=== PATIENT | male | born 1965 | race Caucasian/White ===

== ENCOUNTER 2023-07-03 04:56 | Emergency (ER) | payer OTHER ==
[~2023-07-03] VITALS: Ht 165.1 cm; Wt 84.8 kg
[~2023-07-03 04:56] MED LIST: AMLO5TAB88 PO; LACT10SO7 PO
[2023-07-03 05:36] VITALS: O2SAT 95
[2023-07-03] MEDS ORDERED: ACETAMINOPHEN 325MG TABLET PO ONE (07:45)
[2023-07-03] MEDS ORDERED: TOPUD PO (13:28)
[2023-07-03] MEDS ORDERED: ACETAMINOPHEN 325MG TABLET PO NR (14:00)
[2023-07-03 14:28] VITALS: BP 140/90; PULSE 87; RESP 20; TEMP 97.9
== END 2023-07-03 14:29 | disposition home or self-care (01) ==
LOC: ER 05:07
DX: M54.6 Pain in thoracic spine (principal); E11.9 Type 2 diabetes mellitus without complications; I10 Essential (primary) hypertension
CPT/HCPCS: 73030; 99283

== ENCOUNTER 2023-07-09 05:49 | Emergency (ER) | payer OTHER ==
[~2023-07-09] VITALS: Ht 170.2 cm; Wt 85.0 kg
[~2023-07-09 05:49] MED LIST changes: +TOPUD PO
[2023-07-09] MEDS ORDERED: LORAZEPAM 2MG/ML CPJ IV STA (06:11)
[2023-07-09] MEDS ORDERED: SODIUM CHLORIDE 0.9% 1,000 ML IV ONE (06:15)
[2023-07-09 06:58] LABS: BASOPHILS % 0.7 % (0.0-2.0); HEMATOCRIT. 44.9 % (42.0-52.0); HEMOGLOBIN. 15.9 g/dL (14.0-18.0); LYMPHOCYTES % 39.1 % (20.0-50.0); MEAN CORPUSCULAR HEMOGLOBIN 33.9 pg (28.0-32.0); MEAN CORPUSCULAR HGB CONC 35.3 g/dL (31.0-37.0); MEAN CORPUSCULAR VOLUME 96.1 fL (80.0-94.0); MEAN PLATELET VOLUME 8.7 fl (7.4-10.4); MONOCYTES % 7.7 % (2.0-8.0); NEUTROPHILS % 46.5 % (40.0-76.0); PLATELET 120 x1000/uL (130-400); RED BLOOD CELL COUNT 4.67 mill/uL (4.7-6.1); RED CELL DISTRIBUTION WIDTH 14.8 % (11.6-14.6); WHITE BLOOD COUNT 5.5 x1000/uL (4.5-11.0)
[2023-07-09 07:07] LABS: CHLORIDE 110 mEq/L (98-107); INDEX HEMOLYSI 6 (1-3); INDEX ICTERIC 2 (1-4); INDEX LIPEMIC 1 (1-3); SODIUM 138 mEq/L (136-145)
[2023-07-09 07:08] LABS: INDEX HEMOLYSI 3 (1-3)
[2023-07-09 07:13] LABS: ALBUMIN 3.4 g/dL (3.4-5.0); ASPARTATE AMINOTRANSFERASE 114 IU/L (15-37); BILIRUBIN TOTAL 3.1 mg/dL (0.1-1.0); CALCIUM 8.6 mg/dL (8.5-10.1); CARBON DIOXIDE 25 mEq/L (21-32); CREATININE 0.6 mg/dL (0.6-1.3); ETHANOL BLOOD < 10 mg/dL (-10); GLUCOSE 100 mg/dL (70-105); PROTEIN TOTAL 8.4 g/dL (6.0-8.3); UREA NITROGEN BLOOD 6 mg/dL (7-21)
[2023-07-09 07:28] LABS: POTASSIUM 5.9 mEq/L (3.5-5.1)
[2023-07-09] MEDS ORDERED: LORAZEPAM 2MG/ML CPJ IM STA (08:01)
[2023-07-09 08:08] LABS: AMMONIA 164 uMol/L (<32)
[2023-07-09] MEDS ORDERED: HALOPERIDOL LACTATE 5MG/ML VIAL IM ONE (08:15)
[2023-07-09 08:16] LABS: ALANINE AMINOTRANSFERASE 42 IU/L (13-61)
[2023-07-09 11:44] VITALS: BP 124/78; PULSE 84; RESP 18; TEMP 98.5
[2023-07-09 11:49] LABS: CLARITY URINE CLEAR (CLEAR); COLOR URINE YELLOW (YELLOW); GLUCOSE URINE NEGATIVE (NEGATIVE); KETONES URINE NEGATIVE (NEGATIVE); LEUKOCYTE ESTERASE URINE NEGATIVE (NEGATIVE); NITRITE URINE NEGATIVE (NEGATIVE); OCCULT BLOOD URINE 3+ (NEGATIVE); PH URINE 7.5 (4.5-8.0); PROTEIN URINE NEGATIVE (NEGATIVE); SPECIFIC GRAVITY URINE 1.009 (1.005-1.030)
[2023-07-09 12:24] LABS: *AMPHETAMINES SCREEN URINE NEGATIVE (NEGATIVE); *BARBITURATES SCREEN URINE NEGATIVE (NEGATIVE); *BENZODIAZEPINES SCREEN URINE NEGATIVE (NEGATIVE); *COCAINE SCREEN URINE NEGATIVE (NEGATIVE); CANNABINOID URINE SCREEN NEGATIVE (NEGATIVE); ECSTASY MDMA SCREEN URINE NEGATIVE (NEGATIVE); METHADONE URINE SCREEN NEGATIVE (NEGATIVE); OPIATES URINE SCREEN NEGATIVE (NEGATIVE); PHENCYCLIDINE URINE SCREEN NEGATIVE (NEGATIVE)
[2023-07-09 13:24] LABS: BACTERIA URINE TRACE; RBC URINE 50-100 /hpf (0-2); SQUAMOUS EPITHELIAL CELL URINE NONE SEEN /lpf (RARE/1+)
[2023-07-09 13:25] LABS: WBC URINE 0-2 /hpf (0-2)
== END 2023-07-09 11:57 | disposition short-term general hospital (02) ==
LOC: ER 06:02
DX: K72.90 Hepatic failure, unspecified without coma (principal); K76.82 Hepatic encephalopathy; I49.9 Cardiac arrhythmia, unspecified
CPT/HCPCS: 80053; 80305; 81003; 80320; 82140; 85025; 36415; 70450; 93005; 96361; 96372; 96374; 99285; J1630; J2060; J7030; Z7610 ×5; G0480

== ENCOUNTER 2024-08-21 06:01 | Emergency (ER) | payer OTHER ==
[~2024-08-21] VITALS: Ht 167.6 cm; Wt 75.0 kg
[2024-08-21 06:14] VITALS: O2SAT 96
[2024-08-21 06:54] LABS: BASOPHILS % 1.1 % (0.0-2.0); EOSINOPHILS % 3.9 % (0.0-5.0); HEMOGLOBIN. 15.4 g/dL (14.0-18.0); LYMPHOCYTES % 26.6 % (20.0-50.0); MEAN CORPUSCULAR HEMOGLOBIN 35.1 pg (28.0-32.0); MEAN CORPUSCULAR HGB CONC 35.8 g/dL (31.0-37.0); MONOCYTES % 11.4 % (2.0-8.0); RED BLOOD CELL COUNT 4.39 mill/uL (4.7-6.1); RED CELL DISTRIBUTION WIDTH 14.3 % (11.6-14.6)
[2024-08-21 07:07] LABS: CHLORIDE 110 mEq/L (98-107); POTASSIUM 3.9 mEq/L (3.5-5.1); SODIUM 139 mEq/L (136-145)
[2024-08-21 07:08] LABS: CARBON DIOXIDE 22 mEq/L (21-32)
[2024-08-21 07:09] LABS: CALCIUM 9.4 mg/dL (8.7-10.4)
[2024-08-21 07:11] LABS: DIFFERENTIAL COMMENT 1
[2024-08-21 07:13] LABS: CREATININE 0.8 mg/dL (0.6-1.3); GLUCOSE 55 mg/dL (70-105)
[2024-08-21 07:14] LABS: TROPONIN I HIGH SENSITIVITY 4 ng/L (3.0-53); UREA NITROGEN BLOOD 7 mg/dL (9-23)
[2024-08-21 07:15] LABS: ALANINE AMINOTRANSFERASE 40 IU/L (10-49); ALBUMIN 3.9 g/dL (3.2-4.8); ASPARTATE AMINOTRANSFERASE 84 IU/L (<34); CREATINE KINASE 131 IU/L (46-171)
[2024-08-21 07:16] LABS: BILIRUBIN DIRECT 0.7 mg/dL (<=3.0); BILIRUBIN TOTAL 2.2 mg/dL (0.1-1.0); PROTEIN TOTAL 7.5 g/dL (6.0-8.3)
[2024-08-21 07:27] LABS: ETHANOL BLOOD < 10 mg/dL (<10)
[2024-08-21 07:31] LABS: AMMONIA 203 uMol/L (<32)
[2024-08-21 07:57] LABS: MEAN PLATELET VOLUME 8.5 fl (7.4-10.4); PLATELET 120 x1000/uL (130-400)
[2024-08-21] MEDS: LACTULOSE 20G/30ML UDC PO ONE (09:24)
[2024-08-21 09:53] VITALS: BP 111/76; PULSE 64; RESP 12; TEMP 36.50292; O2SAT 96
[2024-08-21 10:07] LABS: CLARITY URINE CLEAR (CLEAR); COLOR URINE YELLOW (YELLOW); GLUCOSE URINE NEGATIVE (NEGATIVE); KETONES URINE NEGATIVE (NEGATIVE); LEUKOCYTE ESTERASE URINE NEGATIVE (NEGATIVE); NITRITE URINE NEGATIVE (NEGATIVE); OCCULT BLOOD URINE NEGATIVE (NEGATIVE); PH URINE 7.5 (4.5-8.0); PROTEIN URINE NEGATIVE (NEGATIVE); SPECIFIC GRAVITY URINE 1.004 (1.005-1.030); UROBILINOGEN URINE 0.2 E.U./dL (0.2-1.0)
[2024-08-21 10:29] LABS: *AMPHETAMINES SCREEN URINE NEGATIVE (NEGATIVE); *BENZODIAZEPINES SCREEN URINE NEGATIVE (NEGATIVE)
[2024-08-21 10:30] LABS: *BARBITURATES SCREEN URINE NEGATIVE (NEGATIVE); *COCAINE SCREEN URINE NEGATIVE (NEGATIVE); CANNABINOID URINE SCREEN NEGATIVE (NEGATIVE); ECSTASY MDMA SCREEN URINE NEGATIVE (NEGATIVE); METHADONE URINE SCREEN NEGATIVE (NEGATIVE); OPIATES URINE SCREEN NEGATIVE (NEGATIVE); PHENCYCLIDINE URINE SCREEN NEGATIVE (NEGATIVE)
== END 2024-08-21 11:02 | disposition short-term general hospital (02) ==
LOC: ER 06:09
DX: R41.82 Altered mental status, unspecified (principal); E11.9 Type 2 diabetes mellitus without complications; I10 Essential (primary) hypertension; Z79.899 Other long term (current) drug therapy
CPT/HCPCS: 80076; 80305; 80048; 81003; 80320; 82140; 82550; 82962; 83690; 85025; 84484; 36415; 71045; 70450; 99285; Z7610; G0480

== ENCOUNTER 2024-12-17 06:29 | Inpatient (IN) | payer OTHER ==
[~2024-12-17] VITALS: Ht 172.7 cm; Wt 83.9 kg
[2024-12-17 08:16] LABS: BASOPHILS % 0.5 % (0.0-2.0); EOSINOPHILS % 5.1 % (0.0-5.0); HEMATOCRIT. 44.1 % (42.0-52.0); HEMOGLOBIN. 15.2 g/dL (14.0-18.0); LYMPHOCYTES % 22.9 % (20.0-50.0); MEAN CORPUSCULAR HEMOGLOBIN 33.7 pg (28.0-32.0); MEAN CORPUSCULAR HGB CONC 34.5 g/dL (31.0-37.0); MEAN CORPUSCULAR VOLUME 97.7 fL (80.0-94.0); MEAN PLATELET VOLUME 8.2 fl (7.4-10.4); MONOCYTES % 10.9 % (2.0-8.0); NEUTROPHILS % 60.6 % (40.0-76.0); PLATELET 116 x1000/uL (130-400); RED BLOOD CELL COUNT 4.51 mill/uL (4.7-6.1); RED CELL DISTRIBUTION WIDTH 13.4 % (11.6-14.6); WHITE BLOOD COUNT 5.2 x1000/uL (4.5-11.0)
[2024-12-17 08:25] LABS: CHLORIDE 112 mEq/L (98-107); POTASSIUM 3.3 mEq/L (3.5-5.1); SODIUM 142 mEq/L (136-145)
[2024-12-17 08:26] LABS: CALCIUM 9.4 mg/dL (8.7-10.4); CARBON DIOXIDE 20 mEq/L (21-32)
[2024-12-17 08:31] LABS: CREATININE 0.7 mg/dL (0.6-1.3); GLUCOSE 116 mg/dL (70-105); UREA NITROGEN BLOOD 8 mg/dL (9-23)
[2024-12-17 08:32] LABS: ALANINE AMINOTRANSFERASE 26 IU/L (10-49); ASPARTATE AMINOTRANSFERASE 38 IU/L (<34)
[2024-12-17 08:33] LABS: ACETAMINOPHEN < 2 ug/mL (10-30); ALBUMIN 3.4 g/dL (3.2-4.8); BILIRUBIN DIRECT 0.8 mg/dL (<=3.0); BILIRUBIN TOTAL 2.4 mg/dL (0.1-1.0); PROTEIN TOTAL 7.4 g/dL (6.0-8.3)
[2024-12-17 09:11] LABS: AMMONIA 165 uMol/L (<32)
[2024-12-17 09:13] LABS: TROPONIN I HIGH SENSITIVITY < 4 ng/L (3.0-53)
[2024-12-17 09:14] LABS: ETHANOL BLOOD < 10 mg/dL (<10)
[2024-12-17] MEDS: LACTULOSE 20G/30ML UDC PO ONE (11:05)
[2024-12-17] MEDS ORDERED: ONDANSETRON HCL 4MG/2ML INJ IV PRN (11:30)
[2024-12-17] MEDS ORDERED: ACETAMINOPHEN 325MG TABLET PO PRN (11:30)
[2024-12-17] MEDS ORDERED: LACTULOSE 20G/30ML UDC PO SCH (14:00)
[2024-12-17 16:00] VITALS: BP_SYST 109; BP_SYST 140; BP_DIAS 60; BP_DIAS 89; PULSE 79; PULSE 80; RESP 22; TEMP 36.4; O2SAT 97; O2SAT 98
[2024-12-17] MEDS ORDERED: FUROSEMIDE 40MG/4ML VIAL IVP SCH (16:45)
[2024-12-17] MEDS ORDERED: SPIRONOLACTONE 50MG TABLET PO SCH (16:45)
[2024-12-17] MEDS: POTASSIUM CHLORIDE 20MEQ TABLET SR PO NR (17:26)
[2024-12-17] MEDS: PANTOPRAZOLE 40MG DR TABLET PO ONE (17:27)
[2024-12-17] MEDS: LORAZEPAM 2MG/ML INJ IV PRN (17:27)
[2024-12-17 17:48] VITALS: BP 109/60; PULSE 80; RESP 20; TEMP 36.4
[2024-12-17 18:05] LABS: TROPONIN I HIGH SENSITIVITY < 4 ng/L (3.0-53)
[2024-12-17 20:00] VITALS: BP 128/80; PULSE 80; RESP 20; TEMP 36.6; O2SAT 97
[2024-12-17] MEDS: LACTULOSE 20G/30ML UDC PO SCH (23:35)
[2024-12-18] VITALS (7 sets, daily range): BP systolic 102–128; BP diastolic 64–82; PULSE 63–74; RESP 18–22; TEMP 35.7–37.1; O2SAT 93–100
[2024-12-18 07:04] LABS: CHLORIDE 110 mEq/L (98-107); SODIUM 142 mEq/L (136-145)
[2024-12-18 07:05] LABS: CARBON DIOXIDE 22 mEq/L (21-32)
[2024-12-18 07:10] LABS: CREATININE 0.7 mg/dL (0.6-1.3); GLUCOSE 78 mg/dL (70-105); UREA NITROGEN BLOOD 9 mg/dL (9-23)
[2024-12-18 07:12] LABS: ALANINE AMINOTRANSFERASE 26 IU/L (10-49); ALBUMIN 3.3 g/dL (3.2-4.8); ASPARTATE AMINOTRANSFERASE 38 IU/L (<34); BILIRUBIN TOTAL 3.1 mg/dL (0.1-1.0)
[2024-12-18 07:13] LABS: PROTEIN TOTAL 7.4 g/dL (6.0-8.3)
[2024-12-18 08:12] LABS: BASOPHILS % 0.5 % (0.0-2.0); EOSINOPHILS % 9.5 % (0.0-5.0); HEMATOCRIT. 47.1 % (42.0-52.0); HEMOGLOBIN. 15.8 g/dL (14.0-18.0); LYMPHOCYTES % 31.1 % (20.0-50.0); MEAN CORPUSCULAR HEMOGLOBIN 33.2 pg (28.0-32.0); MEAN CORPUSCULAR HGB CONC 33.6 g/dL (31.0-37.0); MEAN PLATELET VOLUME 8.6 fl (7.4-10.4); MONOCYTES % 11.6 % (2.0-8.0); NEUTROPHILS % 47.3 % (40.0-76.0); PLATELET 113 x1000/uL (130-400); RED BLOOD CELL COUNT 4.76 mill/uL (4.7-6.1); RED CELL DISTRIBUTION WIDTH 13.8 % (11.6-14.6); WHITE BLOOD COUNT 6.2 x1000/uL (4.5-11.0)
[2024-12-18 08:34] LABS: AMMONIA 136 uMol/L (<32)
[2024-12-18] MEDS: FOLIC ACID/VITAMIN B COMP W-C TABLET PO SCH (08:53)
[2024-12-18] MEDS: THIAMINE HCL 100MG TABLET PO SCH (08:54)
[2024-12-18] MEDS: SPIRONOLACTONE 50MG TABLET PO SCH (08:54)
[2024-12-18] MEDS: FUROSEMIDE 40MG TABLET PO SCH (08:55)
[2024-12-18] MEDS: IPRATROPIUM/ALBUTEROL 0.5-3(2.5)MG/3ML NEB HHN SCH (12:18)
[2024-12-18] MEDS ORDERED: FURO-151 MT (13:24)
[2024-12-18] MEDS ORDERED: SPIR50TA5 MT (13:24)
[2024-12-19] MEDS ORDERED: THIA100T88 (20:04)
[2024-12-19] MEDS ORDERED: FOLI-43 (20:04)
[2024-12-19] MEDS ORDERED: FINA5TAB11 (20:04)
[2024-12-19] MEDS ORDERED: MULT-624 (20:04)
[2024-12-19] MEDS ORDERED: TAMS-11 PO (20:04)
[2024-12-19] MEDS ORDERED: PANT40TA51 (20:04)
[2024-12-20] MEDS ORDERED: DONE5TAB7 MT (16:30)
[2024-12-20] MEDS ORDERED: DONE23TA3 PO (16:30)
[2024-12-20] MEDS ORDERED: RIFA550T MT (16:31)
== END 2024-12-18 17:55 | disposition home or self-care (01) | DRG 52 ==
LOC: ER 06:29 → 7WST 10:09 → EDBEDREQTM 10:12 → EDBEDREQ 10:12
PROVIDERS: ADMIT Internal Medicine; ATTEND Internal Medicine
DX: G93.41 Metabolic encephalopathy (principal); E72.20 Disorder of urea cycle metabolism, unspecified; K74.60 Unspecified cirrhosis of liver; E87.6 Hypokalemia; I10 Essential (primary) hypertension
CPT/HCPCS: 36415; 71045; 80048; 80053; 80076; 80307; 80320; 80329; 82140; 84484; 85025; 93005; 94640; 99285; A4606; J2060; G0480

== ENCOUNTER 2024-12-23 14:30 | Emergency (ER) | payer OTHER ==
[~2024-12-23] VITALS: Ht 172.7 cm; Wt 91.0 kg
[~2024-12-23 14:30] MED LIST changes: +DONE23TA3 PO; +DONE5TAB7 MT; +FINA5TAB11; +FOLI-43; +FURO-151 MT; +MULT-624; +PANT40TA51; +RIFA550T MT; +SPIR50TA5 MT; +TAMS-11 PO; +THIA100T88
[2024-12-23 14:33] VITALS: BP 164/82; PULSE 80; RESP 18; TEMP 37.1; O2SAT 99
[2024-12-23 18:05] LABS: BASOPHILS % 0.6 % (0.0-2.0); EOSINOPHILS % 3.1 % (0.0-5.0); HEMATOCRIT. 46.5 % (42.0-52.0); HEMOGLOBIN. 16.3 g/dL (14.0-18.0); LYMPHOCYTES % 24.1 % (20.0-50.0); MEAN CORPUSCULAR HEMOGLOBIN 34.2 pg (28.0-32.0); MEAN CORPUSCULAR HGB CONC 35.2 g/dL (31.0-37.0); MEAN CORPUSCULAR VOLUME 97.1 fL (80.0-94.0); MEAN PLATELET VOLUME 8.2 fl (7.4-10.4); MONOCYTES % 10.5 % (2.0-8.0); NEUTROPHILS % 61.7 % (40.0-76.0); PLATELET 127 x1000/uL (130-400); RED BLOOD CELL COUNT 4.78 mill/uL (4.7-6.1); RED CELL DISTRIBUTION WIDTH 13.5 % (11.6-14.6); WHITE BLOOD COUNT 6.9 x1000/uL (4.5-11.0)
[2024-12-23 18:15] LABS: CHLORIDE 107 mEq/L (98-107); POTASSIUM 3.9 mEq/L (3.5-5.1); SODIUM 141 mEq/L (136-145)
[2024-12-23 18:16] LABS: CALCIUM 9.5 mg/dL (8.7-10.4); CARBON DIOXIDE 22 mEq/L (21-32)
[2024-12-23 18:20] LABS: TROPONIN I HIGH SENSITIVITY 4 ng/L (3.0-53)
[2024-12-23 18:21] LABS: CREATININE 0.8 mg/dL (0.6-1.3); GLUCOSE 92 mg/dL (70-105); UREA NITROGEN BLOOD 17 mg/dL (9-23)
[2024-12-23 18:23] LABS: ETHANOL BLOOD < 10 mg/dL (<10)
[2024-12-23 18:31] LABS: AMMONIA 113 uMol/L (<32)
[2024-12-24] MEDS ORDERED: HYDROCODONE/ACETAMINOPHEN 5/325MG TABLET PO PRN (00:15)
[2024-12-24] MEDS ORDERED: ACETAMINOPHEN 325MG TABLET PO PRN (00:15)
[2024-12-24] MEDS ORDERED: CLONIDINE 0.1MG TABLET PO PRN (00:15)
[2024-12-24] MEDS ORDERED: IPRATROPIUM/ALBUTEROL 0.5-3(2.5)MG/3ML NEB NEB PRN (00:15)
[2024-12-24] MEDS ORDERED: ENOXAPARIN 40MG/0.4ML SYR SUBCUT SCH (00:15)
[2024-12-24] MEDS ORDERED: SODIUM CHLORIDE 0.9% 1,000 ML IV SCH (00:30)
[2024-12-24] MEDS ORDERED: MVI, ADULT NO.1 10 ML, FOLIC ACID 1 MG, THIAMINE HCL 100 MG in SODIUM CHLORIDE 0.9% 1,0... IV SCH (02:00)
[2024-12-24] MEDS ORDERED: LACTULOSE 20G/30ML UDC PO SCH (06:00)
[2024-12-24] MEDS ORDERED: PANTOPRAZOLE SODIUM 40 MG/VIAL IV SCH (09:00)
[2024-12-24] MEDS ORDERED: RIFAXIMIN 550 MG TABLET PO SCH (09:00)
== END 2024-12-24 00:05 | disposition short-term general hospital (02) ==
LOC: ER 14:30
DX: K76.82 Hepatic encephalopathy (principal); R41.82 Altered mental status, unspecified; E83.42 Hypomagnesemia; K74.60 Unspecified cirrhosis of liver; I10 Essential (primary) hypertension; Z79.899 Other long term (current) drug therapy
CPT/HCPCS: 80048; 80320; 82140; 83690; 85025; 84484; 36415; 71045; 70450; 93005; 99285; Z7610; J3411; J3490; J7030; G0480

== ENCOUNTER 2025-06-21 19:54 | Emergency (ER) | payer OTHER ==
[~2025-06-21] VITALS: Ht 177.8 cm; Wt 84.0 kg
[~2025-06-21 19:54] MED LIST changes: +DONE23TA14 PO; -DONE23TA3 PO; +LACT-390 MT; -LACT10SO7 PO; -TAMS-11 PO; +TAMS-54 PO
[2025-06-21 20:04] VITALS: TEMP 36.8; O2SAT 99
[2025-06-21 21:01] LABS: BASOPHILS % 0.8 % (0.0-2.0); EOSINOPHILS % 4.5 % (0.0-5.0); HEMATOCRIT. 41.7 % (42.0-52.0); HEMOGLOBIN. 14.7 g/dL (14.0-18.0); LYMPHOCYTES % 26.8 % (20.0-50.0); MEAN PLATELET VOLUME 7.7 fl (7.4-10.4); MONOCYTES % 12.3 % (2.0-8.0); NEUTROPHILS % 55.6 % (40.0-76.0); PLATELET 113 x1000/uL (130-400); RED BLOOD CELL COUNT 4.45 mill/uL (4.7-6.1); RED CELL DISTRIBUTION WIDTH 14.1 % (11.6-14.6)
[2025-06-21] MEDS: SODIUM CHLORIDE 0.9% 1,000 ML IV ONE (21:03)
[2025-06-21 21:15] LABS: CREATININE 0.9 mg/dL (0.6-1.3)
[2025-06-21 21:16] LABS: ETHANOL BLOOD < 10 mg/dL (<10); TROPONIN I HIGH SENSITIVITY < 4 ng/L (3.0-53); UREA NITROGEN BLOOD 10 mg/dL (9-23)
[2025-06-21 21:17] LABS: ASPARTATE AMINOTRANSFERASE 44 IU/L (<34)
[2025-06-21 21:18] LABS: BILIRUBIN DIRECT 1.0 mg/dL (<=3.0); BILIRUBIN TOTAL 2.6 mg/dL (0.1-1.0); PROTEIN TOTAL 7.3 g/dL (6.0-8.3)
[2025-06-21] MEDS: KCL 20MEQ/100ML PREMIX 100 ML IV SCH (22:14)
[2025-06-21 22:20] VITALS: TEMP 98.3
[2025-06-21 23:37] VITALS: BP 140/68; PULSE 80; RESP 13; O2SAT 95
== END 2025-06-22 00:10 | disposition short-term general hospital (02) ==
LOC: ER 19:54 → EDBEDREQ 22:45 → EDBEDREQTM 22:45 → ER 06-22 00:10 → CMPBEDREQ 06-22 08:50
DX: E87.6 Hypokalemia (principal); R53.1 Weakness; F10.20 Alcohol dependence, uncomplicated; I10 Essential (primary) hypertension; K74.60 Unspecified cirrhosis of liver; Z55.6 Problems related to health literacy; Z79.899 Other long term (current) drug therapy; Y90.9 Presence of alcohol in blood, level not specified
CPT/HCPCS: 80076; 80048; 80320; 82550; 85025; 84484; 36415; 96365; 99285; J3480; J7030; Z7610; A4606; G0480